=== PATIENT | male | born 1975 | race Caucasian/White ===

== ENCOUNTER → 2018-03-15 15:15 | Outpatient (CLI) | payer BC, SELFPAY ==
--- NOTE | 2018-03-15 15:32 | NVE_ITS ---
Venous Exam Indications: 729.5 Pain in limb. IMPRESSIONS 1. There is no evidence of significant Reflux. 2. No evidence of deep or superficial vein thrombosis involving the left lower extremity Left lower extremity venous duplex evaluation. Doppler flow study including spectral analysis, color and medeiros scale imaging. Location: Vascular laboratory. Patient status: Outpatient. Tables: Venous flow and imaging: + +-------+ + Location Overall Flow properties + +-------+ + Left common femoral Patent Normal phasicity; spontaneous; normal augmentation; compressible + +-------+ + Left saphenofemoral junction Patent Compressible + +-------+ + Left profunda femoral Patent Compressible + +-------+ + Left femoral Patent Normal phasicity; spontaneous; normal augmentation; compressible + +-------+ + Left greater saphenous Patent Normal phasicity; spontaneous; normal augmentation; compressible + +-------+ + Left popliteal Patent Normal phasicity; spontaneous; normal augmentation; compressible + +-------+ + Left posterior tibial Patent Compressible + +-------+ + Left peroneal Patent Compressible + +-------+ + Left gastrocnemius Patent Compressible + +-------+ + Left soleal Patent Compressible + +-------+ + (Report amended ) Electronically signed by: Jarrell Encarnacion [id number]
== END ==
PROVIDERS: PCP Family Medicine; Visit Provider Nurse Practitioner
DX: M79.662 Pain in left lower leg (principal)
CPT/HCPCS: 93971

== ENCOUNTER → 2019-06-09 12:51 | Outpatient (CLI) | payer BC, SELFPAY ==
--- NOTE | 2019-06-09 12:53 | MR_ITS ---
PROCEDURE: MR CERVICAL SPINE WO CON CLINICAL INDICATION: CERVICAL SPINE PAIN Bilateral neck pain and arm numbness with headache COMPARISON: No exams were available for comparison TECHNIQUE: Standard multiplanar multiecho sequences are performed without contrast. 3-D MIP and myelographic images are also rendered and reviewed FINDINGS: There is normal alignment. Unremarkable craniocervical junction. C2-C3: Unremarkable. C3-C4: Unremarkable. C4-C5: Mild degenerative disc disease with minimal bulging disc with mild left foraminal narrowing. C5-C6: Degenerative disc disease with small central disc protrusion. There is minimal contour deformity along the anterior aspect of the cord with borderline narrowing of the canal. C6-C7: Minimal bulging of the disc/minimal central disc protrusion without impingement.. C7-T1: Unremarkable. No disc herniation. IMPRESSION: 1. C4-C5: Mild degenerative disc disease with minimal bulging disc with mild left foraminal narrowing. 2. C5-C6: Degenerative disc disease with small central disc protrusion. There is minimal contour deformity along the anterior aspect of the cord with borderline narrowing of the canal. 3. C6-C7: Minimal bulging of the disc/minimal central disc protrusion without impingement.. Dictated by: Jarrell Encarnacion MD 06/12/2019 09:41 Electronically signed by Jarrell Encarnacion MD in [place] 06/12/2019 09:41
== END ==
PROVIDERS: PCP Family Medicine; Visit Provider Family Medicine
DX: M54.2 Cervicalgia (principal)
CPT/HCPCS: 72141; 76376

== ENCOUNTER 2020-03-10 13:01 | Emergency (ER) | payer BC, SELFPAY ==
[2020-03-10 13:03] VITALS: BP 183/121; PULSE 65; RESP 16; TEMP 36.6; O2SAT 98; BMI 26.4
--- NOTE | 2020-03-10 13:44 | HMH.EDSKAF ---
ED Disposition Clinical Impression: Laceration of finger Qualifiers: Encounter type: initial encounter Finger: ring finger Damage to nail status: without damage Foreign body presence: without foreign body Laterality: left Qualified Code(s): S61.215A - Laceration without foreign body of left ring finger without damage to nail, initial encounter Disposition: Home, Self-Care Condition on Discharge: Good Referrals: Bijal Nazario MD [Primary Care Provider] - - Critical Care Critical Care Time: No Attestation: On 03/10/20, the high probability of a clinically significant, sudden or life threatening deterioration of the following system(s) required my full and direct attention, intervention and personal management. The time I documented below is in addition to time spent performing reported procedures but includes the following listed in this critical care notation. Medical Decision Making - Medical Records Medical records reviewed: Yes: I reviewed the patient's medical records. - Kelvin Inquiry Pt receiving controlled substance: No Vital Signs: 03/10/20 13:03 Temperature 98 F Temperature Source Oral Pulse Rate [Radial] 65 Respiratory Rate 16 Blood Pressure [Right Arm] 183/121 H Blood Pressure Mean [Right Arm] 141 Blood Pressure Position [Right Arm] Sitting 02 Sat by Pulse Oximetry 98 Oxygen Delivery Method Room Air Skin/Abscess/FB HPI - General Chief complaint: Skin/Abscess/Foreign Body Stated complaint: left hand 3rd finger lac in table saw Time Seen by Provider: 03/10/20 13:30 Mode of Arrival: Ambulatory Source of Information: Patient Limitations: No Limitations Description of Symptoms (Recalled from ER Triage Doc. by RN): to ed per pvt car pt states lac to lt ring finger with table saw - History of Present Illness HPI narrative: This is a 44-year-old male who presents after sustaining laceration to the left ring finger after accidentally cutting himself with a table saw while working in his garage. Bleeding controlled prior to arrival. No significant pain. Patient still has full movement of the affected finger. No other injuries. Patient reports tetanus shot is up-to-date [facility] History - Hepatitis A Screen Drug use history?: No High risk sexual behaviors?: No History of sexually transmitted infection?: No Currently employed?: No Childcare worker?: No Do you have indoor plumbing?: Yes Do you have electricity?: Yes Attestation statement:: This patient has been screened for Hepatitis A risk factors. I have reviewed the patient's past medical history: Yes ROS Obtained: Yes All systems reviewed & no additional complaints Physical Exam - General General appearance: alert, in no apparent distress - Head Head exam: atraumatic, normocephalic - Eye Eye exam: Present: normal appearance, PERRL - Chest Chest inspection: Present: normal inspection, symmetric chest wall rise - Respiratory Respiratory exam: Present: normal lung sounds bilaterally - Cardiovascular Cardiovascular exam: Present: regular rate, normal rhythm, normal heart sounds - Abdominal Exam Abdominal exam: Present: soft, normal bowel sounds - Extremities Exam Extremities exam: Present: full ROM, other (3.5cm laceration from PIP L.ring finger ending just prior to nail bed) - Neurological Exam Neurological exam: Present: alert, oriented X3 Procedures - Laceration Laceration 1 Site: finger Side (If applicable): left (ring) Size (cm): 3.5 Description: linear Depth: simple, single layer Local Anesthetic: lidocaine 1% Amount of anesthesia used (mL): 10 Pre-repair: wound explored, irrigated extensively, deep structures intact Skin layer closed with: nylon Size (cm): 4-0 Number of sutures: 7 Technique: simple, interrupted
[2020-03-10 14:03] VITALS: BP 129/87; PULSE 63; RESP 16; TEMP 36.7; O2SAT 98
== END 2020-03-10 14:05 | disposition home or self-care (01) ==
PROVIDERS: Emergency Provider Emergency Medicine; PCP Family Medicine
DX: S61.215A Laceration without foreign body of left ring finger without damage to nail, initial encounter (principal); W31.2XXA Contact with powered woodworking and forming machines, initial encounter; Y92.015 Private garage of single-family (private) house as the place of occurrence of the external cause
CPT/HCPCS: 12002; 99282

== ENCOUNTER → 2021-03-13 16:43 | Outpatient (CLI) | payer BC, SELFPAY | PROVIDERS: PCP Family Medicine; Visit Provider Nurse Practitioner | DX: Z20.822 Contact with and (suspected) exposure to COVID-19 (principal) | CPT/HCPCS: C9803; U0003; U0005 ==

== ENCOUNTER → 2021-06-17 08:05 | Outpatient (CLI) | payer BC, SELFPAY | PROVIDERS: PCP Family Medicine; Visit Provider Nurse Practitioner | DX: Z20.822 Contact with and (suspected) exposure to COVID-19 (principal) | CPT/HCPCS: C9803; U0003; U0005 ==